=== PATIENT | female | born 1975 | race African-American/Black ===

== ENCOUNTER 2024-10-26 17:10 | Emergency (ER) | payer OTHER, SELFPAY ==
--- NOTE | ~2024-10-26 | XR_ITS ---
CHEST RADIOGRAPH, PA AND LATERAL CLINICAL HISTORY: tachycardia and blurry vision. COMPARISON: None available TECHNIQUE: PA and lateral views of the chest. FINDINGS The cardiomediastinal silhouette is unremarkable. The lungs are clear. Visualized osseous structures and soft tissues are unremarkable. IMPRESSION: No focal infiltrate or effusion. Reviewed, dictated and finalized at location A. [employer]
--- NOTE | ~2024-10-26 | CT_ITS ---
History: Blurry vision PROCEDURE: CT head without contrast. COMPARISON: None TECHNIQUE: Axial imaging of the head performed from the skull base to the vertex without IV contrast. Sagittal a nd coronal reformations obtained. DLP: 605 mGy-cm FINDINGS: The ventricles are normal in size, shape and position. There is no mass, mass effect or midline shift. There is no abnormal extra-axial fluid collection or intracranial hemorrhage. Visualized paranasal sinuses are clear. The mastoid air cells are well aerated. No acute displaced fractures within the overlying cranium. Post right frontal craniotomy. Findings within the right orbit suggesting prior right orbital floor reconstruction. Impression: No acute intracranial hemorrhage or suspicious mass effect. Reviewed, dictated and finalized at location A. [employer] WORKER Impression: No acute intracranial hemorrhage or suspicious mass effect.
[2024-10-26 17:36] VITALS: BP 233/104; PULSE 99; RESP 16; TEMP 37; O2SAT 100
--- NOTE | 2024-10-26 17:40 | ECG_ITS ---
Test Date: 2024-10-26 20:46:59 Measurements Intervals [place] Rate: 89 P: 21 DE: 161 QRS: 25 QRSD: 85 T: 64 QT: 350 QTc: 428 Interpretive Statements SINUS RHYTHM POSSIBLE LEFT ATRIAL ENLARGEMENT [-0.1mV P WAVE IN V1/V2] NONSPECIFIC T-WAVE ABNORMALITY No previous ECG available for comparison Electronically Signed On 10-27-2024 10:41:39 [employer] by Bartolo Myers M.D.
--- NOTE | 2024-10-26 20:11 | ED_ITS ---
HPI - General Adult General Chief complaint: Abdominal Pain Stated complaint: abd pain, diarrhea, bilat feet swelling Time Seen by Provider: 10/26/24 19:39 Source: patient Mode of arrival: ambulatory Limitations: no limitations History of Present Illness HPI narrative: This is a 49-year-old female with PMH of DM type 2 who presents to the ED for multiple complaints. She is describing a diffuse abdominal cramping over the past several days associated with diarrhea. Patient states that today she started having increasing blurry vision as well to the bilateral eyes. Denies diplopia or vision loss. Endorses mild headache associated with the blurry vision. States that over the past days to weeks she has had increasing lower leg swelling, worse over the past couple of days to the feet and ankles. States that her sugars are ?probably high. States that she has not been checking her sugars and she has been out of her diabetic medications for 1-2 months. States that she was told in the past that she needed blood pressure medications but has not been BP meds for several months. Denies chest pain, shortness of breath, cough, fevers, chills, nausea, vomiting, back pain. Related Data Allergies Allergy/AdvReac Type Severity Reaction Status Date / Time acetaminophen (From Vicodin) Allergy Intermediate Difficulty Verified 10/26/24 20:53 Breathing hydrocodone (From Vicodin) Allergy Intermediate Difficulty Verified 10/26/24 20:53 Breathing Review of Systems 2 Review of Systems: All systems as dictated in HPI Exam 2 Narrative: GENERAL: Well-appearing, well-nourished, and in no acute distress. HEAD: Normocephalic, atraumatic. EYES: PERRLA and EOMI. ENT: Nares clear, no rhinorrhea or epistaxis. Mucous membranes moist. Oropharynx without tonsillar hypertrophy exudate or other lesions. NECK: Supple. No adenopathy or masses. CHEST: No respiratory distress. Clear to auscultation. No wheezes rales or rhonchi HEART: Regular rate and rhythm. No murmur heard. Normal peripheral pulses. ABDOMEN: Soft, nontender, nondistended, normal active bowel sounds. MSK: Normal range of motion. There is 1+ pitting edema to the bilateral feet and ankles. SKIN: Warm, dry, no rash. NEURO: Alert and oriented x4. No focal deficits. PSYCH: Normal mood and affect. Course Vital Signs Vital signs: Vital Signs Temperature 98.6 F 10/26/24 17:36 Pulse Rate 99 10/26/24 17:36 Respiratory Rate 16 10/26/24 17:36 Blood Pressure 233/104 H 10/26/24 17:36 Pulse Oximetry 100 10/26/24 17:36 Oxygen Delivery Room Air 10/26/24 17:36 Temperature 98.6 F 10/26/24 17:36 Pulse Rate 96 10/26/24 22:36 Respiratory Rate 17 10/26/24 22:36 Blood Pressure 160/90 H 10/26/24 22:36 Pulse Oximetry 100 10/26/24 22:36 Oxygen Delivery Room Air 10/26/24 17:36 Medical Decision Making MDM Narrative Medical decision making narrative: This is a 49-year-old female who presents to the ED for multiple complaints including blurry vision, leg swelling and abdominal pain. Vitals are showing elevated blood pressure of 233 overall for on arrival. Otherwise vitals are normal. Exam is remarkable for the above with obvious pitting edema noted to the bilateral feet. No focal neurologic deficits on exam Lab work remarkable for elevated blood glucose initially of 618. CBC shows mild anemia. CMP is not showing evidence of DKA. Pseudo hyponatremia noted with sodium 128. Hemoglobin A1c greater than 14. BNP is normal. Troponin is negative. Head CT and chest x-ray show no acute findings. Presentation consistent with hyperglycemia and is asymptomatic hypertension. Patient was given hydralazine 10 mg here with good effect. She was also given 2 L of fluids and 10 units of insulin which dropped the blood sugar down to 300. Long discussion with patient regarding her blood sugar and blood pressure control. She clearly does not have a good grasp of the consequences leaving these things unchecked. Rx for hydrochlorothiazide and metformin given. Strongly encouraged follow-up with PCP on these issues. Pt will be discharged in stable condition. Return precautions given and supportive measures discussed. Pt is understanding and agreeable with plan for discharge and follow-up with PCP. Vital Signs Vital Signs: Vital Signs Temperature 98.6 F 10/26/24 17:36 Pulse Rate 99 10/26/24 17:36 Respiratory Rate 16 10/26/24 17:36 Blood Pressure 233/104 H 10/26/24 17:36 Pulse Oximetry 100 10/26/24 17:36 Oxygen Delivery Room Air 10/26/24 17:36 Temperature 98.6 F 10/26/24 17:36 Pulse Rate 96 10/26/24 22:36 Respiratory Rate 17 10/26/24 22:36 Blood Pressure 160/90 H 10/26/24 22:36 Pulse Oximetry 100 10/26/24 22:36 Oxygen Delivery Room Air 10/26/24 17:36 Lab Data 10/26/24 20:52 10/26/24 20:52 Labs: Lab Results 10/26/24 10/26/24 10/26/24 Range/Units 20:41 20:52 22:09 WBC 6.9 (4.5-10.0) K/mm3 RBC 5.53 H (4.2-5.4) M/mm3 Hgb 11.3 L (12.0-15.0) g/dL Hct 35.8 L (37.0-47.0) % MCV 64.7 L (80-100) fl MCH 20.4 L (26-34) pg MCHC 31.6 L (32-36) g/dl RDW 19.0 H (11.5-14.5) % Plt Count 234 (150-375) k/mm3 MPV 10.5 H (7.4-10.4) fl Immature Gran % (Auto) 0.1 (0-0.5) % Neut % (Auto) 49.7 (45.5-73.1) % Lymph % (Auto) 43.1 (18.3-44.2) % [place] % (Auto) 5.3 (2.6-8.5) % Eos % (Auto) 1.4 (0-4.4) % Baso % (Auto) 0.4 (0.2-1.2) % Lymph # (Auto) 2.99 (0.9-3.2) K/mm3 [place] # (Auto) 0.4 (0.1-0.6) K/mm3 Eos # (Auto) 0.1 (0-0.3) K/mm3 Baso # (Auto) 0.0 (0.0-0.1) K/mm3 Abs Immat Gran (auto) 0.01 (0.00-0.031) K/mm3 Absolute Neuts (auto) 3.4 (1.3-6.7) K/mm3 Absolute Nucleated RBC 0.000 (0.0-0.012) K/mm3 Nucleated RBC % 0.0 (0.0-0.2) % Platelet Estimate Adequate (Adequate) % Immature Plt Fraction 4.8 (0.9-11.2) % Microcytosis 1+ (NORMAL) Schistocytes None seen Sodium 128 L (137-145) mmol/L Potassium 4.2 (3.4-5.0) mmol/L Chloride 96 L (98-107) mmol/L Carbon Dioxide 29 (22-30) mmol/L Anion Gap 3 L (4-12) mmol/L BUN 10 (7-17) mg/dL Creatinine 0.55 L (0.7-1.0) mg/dL Estim Creat Clear Calc 104 ml/min Estimated GFR > 60 (59 - ) Glucose 618 H* (65-110) mg/dL POC Capillary Glucose 312 H (65-105) mg/dl Hemoglobin A1c > 14.0 H (<5.7) % Calcium 8.8 (8.4-10.2) mg/dL Total Bilirubin 0.5 (0.2-1.3) mg/dL AST 27 (14-36) U/L ALT 29 (6-35) U/L Alkaline Phosphatase 165 H (38-126) U/L Troponin I < 0.012 (0.000-0.034) ng/mL NT-Pro-B Natriuret Pep 118 H (19.9-100) pg/mL Total Protein 7.0 (6.3-8.2) g/dL Albumin 2.9 L (3.5-5.1) g/dL Lipase 84 (23-300) U/L Urine Color Yellow (Yellow) Urine Appearance Clear (Clear) Urine pH 6.5 (5.0-9.0) Ur Specific [place] 1.032 (1.001-1.035) Urine Protein 3+ H (Negative) mg/dL Urine Glucose (UA) 3+ H (Negative) mg/dL Urine Ketones Negative (Negative) mg/dL Ur Blood (Man) 1+ H (Negative) Urine Nitrate Negative (Negative) Urine Bilirubin Negative (Negative) Urine Urobilinogen 0.2 (<2.0) mg/dL Add Ur Microanalysis Reviewed Leukocyte Esterase Rfl Negative (Negative) DC/UL Urine RBC 6-10 H (0-2) /hpf Urine WBC 0-5 (0-3) /hpf Ur Squamous Epith Cells None seen (Few) /hpf Urine Bacteria None seen /hpf Urine Casts 0-2 Discharge Plan Discharge Clinical Impression: Hyperglycemia, Asymptomatic hypertension Patient Disposition: Home, Self-Care Condition: Stable Instructions: Antibiotic Form Additional Instructions: Your exam today shows evidence of high blood sugar and high blood pressure. If these are left unchecked they will permanently damaged URIs, kidneys and heart. Follow-up with PCP closely on these issues. Take medications as prescribed. If you have any new or worsening symptoms please return to the ER for further evaluation. Patient Language: Iraqi Prescriptions: New hydrochlorothiazide 12.5 mg tablet 12.5 mg PO DAILY Qty: 30 0RF metformin 500 mg tablet 500 mg PO BID Qty: 60 0RF Follow-up/Referrals: PHYSICIAN NOT ON STAFF,NONSTAFF [Primary Care Provider] - Time of Disposition: 22:24
[2024-10-26] MEDS: hydrALAZINE HCL 20 MG/ML VIAL 10 MG IV PUSH (20:52)
[2024-10-26 21:03] VITALS: BP 153/83; PULSE 95; RESP 20; O2SAT 100
[2024-10-26 21:04] LABS: Add Urine Microscopic? YES; Appearance Urine Clear (Clear); Bacteria Urine None Seen /hpf; Bilirubin Urine Negative (Negative); Blood Urine 1+ (Negative); Color Urine Yellow (Yellow); Glucose Urine UA 3+ mg/dL (Negative); Ketones Urine Negative (Negative); Leukocyte Esterase Ur Negative LEU/UL (Negative); Need Manual Microscopic Reviewed; Nitrate Urine Negative (Negative); Non Pathogenic Casts 0-2; Protein Urine 3+ mg/dL (Negative); Specific Grav Ur 1.032 (1.001-1.035); Squamous Epithelial Cell Urine None Seen /hpf (Few); Urobilinogen Urine 0.2 mg/dL (<2.0); WBC Urine 0-5 /hpf (0-3); pH Urine 6.5 (5.0-9.0)
[2024-10-26 21:04] LABS: Basophils Percent Auto 0.4 % (0.2-1.2); Eosinophils Absolute Auto 0.1 K/mm3 (0-0.3); Eosinophils Percent Auto 1.4 % (0-4.4); Hematocrit 35.8 % (37.0-47.0); Hemoglobin 11.3 g/dL (12.0-15.0); Immature Granulocyte Absolute 0.01 K/mm3 (0.00-0.031); Immature Granulocyte Percent A 0.1 % (0-0.5); Immature Platelet Fraction Pct 4.8 % (0.9-11.2); Lymphocytes Absolute Auto 2.99 K/mm3 (0.9-3.2); Lymphocytes Percent Auto 43.1 % (18.3-44.2); Mean Corpuscular HGB Conc 31.6 g/dl (32-36); Mean Corpuscular Hemoglobin 20.4 pg (26-34); Mean Corpuscular Volume 64.7 fl (80-100); Mean Platelet Volume 10.5 fl (7.4-10.4); Monocytes Absolute Auto 0.4 K/mm3 (0.1-0.6); Monocytes Percent Auto 5.3 % (2.6-8.5); Neutrophils Absolute Auto 3.4 K/mm3 (1.3-6.7); Neutrophils Percent Auto 49.7 % (45.5-73.1); Platelet Count Result 234 k/mm3 (150-375); Red Blood Count 5.53 M/mm3 (4.2-5.4); White Blood Count 6.9 K/mm3 (4.5-10.0)
[2024-10-26 21:11] LABS: Microcytosis 1+ (NORMAL); Platelet Estimate Adequate (Adequate); Schistocytes None Seen
[2024-10-26 21:15] LABS: Alanine Aminotransferase 29 U/L (6-35); Albumin Level 2.9 g/dL (3.5-5.1); Alkaline Phosphatase 165 U/L (38-126); Anion Gap 3 mmol/L (4-12); Aspartate Amino Transferase 27 U/L (14-36); Bilirubin,Total 0.5 mg/dL (0.2-1.3); Blood Urea Nitrogen 10 mg/dL (7-17); Calcium 8.8 mg/dL (8.4-10.2); Carbon Dioxide 29 mmol/L (22-30); Chloride 96 mmol/L (98-107); Estimated CRCL calculation 104 ml/min; Estimated Glomerular Filt Rate > 60; Glucose 618 mg/dL (65-110); Lipase 84 U/L (23-300); Potassium 4.2 mmol/L (3.4-5.0); Sodium 128 mmol/L (137-145)
[2024-10-26 21:23] LABS: NT Pro B Type Natriuretic Pept 118 pg/mL (19.9-100); Troponin I < 0.012 ng/mL (0.000-0.034)
[2024-10-26] MEDS: SODIUM CHLORIDE 0.9% IV 1,000 ML 999 ML IV CONT ×2 (21:38→21:39)
[2024-10-26] MEDS: INSULIN HUMAN REGULAR (*BKC) 100 UNITS/ML 10 UNITS IV PUSH (21:39)
[2024-10-26 22:08] LABS: Hemoglobin A1C > 14.0 % (<5.7)
[2024-10-26 22:12] LABS: Glucose Point of Care 312 mg/dl (65-105)
[2024-10-26 22:36] VITALS: BP 160/90; PULSE 96; RESP 17; O2SAT 100
== END 2024-10-26 22:38 | disposition home or self-care (01) ==
PROVIDERS: Registered Nurse; Emergency Provider Physician Assistant
DX: E11.65 Type 2 diabetes mellitus with hyperglycemia (principal); I10 Essential (primary) hypertension; T38.3X6A Underdosing of insulin and oral hypoglycemic [antidiabetic] drugs, initial encounter; T46.5X6A Underdosing of other antihypertensive drugs, initial encounter
CPT/HCPCS: 36415; 70450; 71046; 80053; 81001; 82948; 83036; 83690; 83880; 84484; 85025; 85055; 93005; 96365; 96375; 99284; J0360; J1815; J7030